=== PATIENT | male | born 1970 ===

== ENCOUNTER 2016-11-13 09:47 | Observation (INO) | payer BC ==
--- NOTE | 2016-11-13 10:16 | ED PDOC ---
Arrival/HPI - General Historian: Patient - History of Present Illness Time/Duration: Other (2 days) Context: Home - General Chief Complaint: Rib Injury Time Seen by Provider: 11/13/16 10:15 - History of Present Illness Narrative History of Present Illness (Text): 11/13/16 10:22 This 46 yo male present s to this ED c/o left pleuritic CP x 2 days. Denies fever, sob, rash, abdominal pain, recent illness, trauma, or recent travel. PERC negative for PE (Felix Dugan P) Past Medical History - Provider Review Nursing Documentation Reviewed: Yes - Infectious Disease Hx of Infectious Diseases: None - Psychiatric Hx Substance Use: No - Surgical History Other/Comment: right shouder repair 2016 - Anesthesia Hx Anesthesia: Yes Hx Anesthesia Reactions: No Hx Malignant Hyperthermia: No Family/Social History - Physician Review Nursing Documentation Reviewed: Yes Family/Social History: No Known Family HX Smoking Status: Never Smoked Hx Alcohol Use: No Hx Substance Use: No Allergies/Home Meds Allergies/Adverse Reactions: Allergies No Known Allergies Allergy (Verified 11/13/16 10:06) Review of Systems - Review of Systems Constitutional: Normal. absent: Fatigue, Weight Change, Fevers Eyes: Normal ENT: Normal Respiratory: Normal. absent: SOB, Cough Cardiovascular: Chest Pain. absent: Palpitations, Edema, Calf Pain, CARLSON, Orthopnea, Syncope Gastrointestinal: Normal Genitourinary Male: Normal Musculoskeletal: Normal Skin: Normal Neurological: Normal Endocrine: Normal Hemo/Lymphatic: Normal Psychiatric: Normal Physical Exam Temperature: Afebrile Blood Pressure: Normal Pulse: Regular Respiratory Rate: Normal Appearance: Positive for: Well-Appearing, Non-Toxic, Comfortable Pain Distress: None Mental Status: Positive for: Alert and Oriented X 3 - Systems Exam Head: Present: Atraumatic, Normocephalic Pupils: Present: PERRL Extroacular Muscles: Present: EOMI Conjunctiva: Present: Normal Mouth: Present: Moist Mucous Membranes Neck: Present: Normal Range of Motion Respiratory/Chest: Present: Clear to Auscultation, Good Air Exchange, Tender to Palpation ((+) mild tenderness left lateral rib area. no chest flail. No swelling or ecchymosis). No: Respiratory Distress, Accessory Muscle Use Cardiovascular: Present: Regular Rate and Rhythm, Normal S1, S2. No: Murmurs Abdomen: Present: Normal Bowel Sounds. No: Tenderness, Distention, Peritoneal Signs Back: Present: Normal Inspection. No: CVA Tenderness Upper Extremity: Present: Normal Inspection, Normal ROM, NORMAL PULSES. No: Cyanosis, Edema Lower Extremity: Present: Normal Inspection, Normal ROM. No: Edema Neurological: Present: GCS=15, CN II-XII Intact, Speech Normal, Motor Func Grossly Intact, Normal Sensory Function, Normal Cerebellar Funct, Gait Normal, Memory Normal Skin: Present: Warm, Dry, Normal Color. No: Rashes Psychiatric: Present: Alert, Oriented x 3, Normal Insight, Normal Concentration Vital Signs Temp Pulse Resp BP Pulse Ox 11/13/16 14:39 98 F 75 19 124/75 99 11/13/16 12:19 67 18 118/64 96 11/13/16 11:02 65 18 120/65 96 11/13/16 10:01 98.3 F 75 19 132/82 100 Medical Decision Making Re-evaluation Time: 13:21 Reassessment Condition: Re-examined, Improving,but remains with symptoms - Lab Interpretations I have reviewed the lab results: Yes Interpretation: No clinic. lab abnormalty - EKG Interpretation Interpreted by ED Physician: Yes (NSR @ [address] changes) Type: 12 lead EKG Comparison: No previous EKG avail. ED Course and Treatment: 11/13/16 10:18 I was available for consultation during PA evaluation. The chart was reviewed by me, and I agree with disposition. The documented history was done by the physician advertising manager. The documented physical exam was done by the physician advertising manager. The documented procedures were done by the physician advertising manager. (Milind Pineda) 11/13/16 13:[address] Farris who is covering Dr. Esquivel, regarding chest pain. We reviewed EKG, Labs, and CXR. She agrees with plan for observation (Felix Dugan ) - Lab Interpretations Lab Results: 11/13/16 11:00 11/13/16 11:00 Lab Results 11/13/16 11:00: Sodium 141, Potassium 4.3, Chloride 102, Carbon Dioxide 29, Anion Gap 14, BUN 19, Creatinine 0.9, Est GFR ( Amer) > 60, Est GFR (Non- Af Amer) > 60, Random Glucose 101, Calcium 9.3, Total Bilirubin 0.5, AST 31, ALT 60 H, Alkaline Phosphatase 84, Lactate Dehydrogenase 444, Total Creatine Kinase 115, Troponin I < 0.01, Total Protein 7.7, Albumin 4.3, Globulin 3.4, Albumin/Globulin Ratio 1.3 11/13/16 11:00: WBC 6.3, RBC 5.55, Hgb 15.2, Hct 44.3, MCV 79.8 L, MCH 27.4, MCHC 34.3, RDW 13.5, Plt Count 179, MPV 11.8 H, Gran % 71.1 H, Lymph % (Auto) 21.3 L, Pratt % (Auto) 6.0, Eos % (Auto) 1.1 L, Baso % (Auto) 0.5, Gran # 4.48, Lymph # 1.3, Pratt # 0.4, Eos # 0.1, Baso # 0.03 - RAD Interpretation Narrative RAD Interpretations (Text): 11/13/16 13:21 CXR: NAD (Felix Dugan) Radiology Orders: 11/13/16 10:21 CHEST TWO VIEWS (PA/LAT) [RAD] Stat RIBS LEFT [RAD] Stat - Medication Orders Current Medication Orders: Discontinued Medications Aspirin (Aspirin Chewable) 324 mg PO STAT STA Stop: 11/13/16 13:01 Last Admin: 11/13/16 14:11 Dose: 324 mg Aspirin (Aspirin) 325 mg PO DAILY [facility] Last Admin: 11/14/16 09:53 Dose: 325 mg Famotidine (Pepcid) 20 mg PO 1000,2200 [facility] Last Admin: 11/14/16 09:55 Dose: Not Given Non-Admin Reason: Patient Refused Ketorolac Tromethamine (Toradol) 30 mg IM STAT STA Stop: 11/13/16 10:24 Last Admin: 11/13/16 10:29 Dose: 30 mg - Scribe Statement The provider has reviewed the documentation as recorded by the Scribe - Scribe Statement Gail Hussein Provider Scribe Attestation: All medical record entries made by the Scribe were at my direction and personally dictated by me. I have reviewed the chart and agree that the record accurately reflects my personal performance of the history, physical exam, medical decision making, and the department course for this patient. I have also personally directed, reviewed, and agree with the discharge instructions and disposition. (Felix Dugan) Disposition/Present on Arrival - Present on Arrival Any Indicators Present on Arrival: No History of DVT/PE: No History of Uncontrolled Diabetes: No Urinary Catheter: No History of Decub. Ulcer: No History Surgical Site Infection Following: None - Disposition Have Diagnosis and Disposition been Completed?: Yes Disposition Time: 13:21 Patient Plan: Admission - Disposition Diagnosis: Chest pain Disposition: HOSPITALIZED Condition: STABLE
[2016-11-13 11:19] LABS: BASO # 0.03 K/mm3 (0.0-2.0); BASO % 0.5 % (0.0-3.0); EOS # 0.1 (0.0-0.7); EOS % 1.1 % (1.5-5.0); GRAN # 4.48 (1.4-6.5); GRAN % 71.1 % (50.0-68.0); HEMOGLOBIN 15.2 gm/dL (14.0-18.0); LYMPH # 1.3 (1.2-3.4); LYMPH % 21.3 % (22.0-35.0); MEAN CELL VOLUME 79.8 fL (80.0-105.0); MEAN CORPUSCULAR HEMOGLOBIN 27.4 pg (25.0-35.0); MEAN CORPUSCULAR HGB CONC 34.3 g/dl (31.0-37.0); MEAN PLATELET VOLUME 11.8 fl (7.0-11.0); MONO # 0.4 (0.1-0.6); PLATELET COUNT 179 10^3/uL (120.0-450.0); RBC 5.55 10^6/uL (3.5-6.1); RED CELL DISTRIBUTION WIDTH 13.5 % (11.5-14.5); WHITE BLOOD COUNT 6.3 10^3/ul (4.5-11.0)
[2016-11-13 11:25] LABS: ALB/GLOB RATIO 1.3 (1.1-1.8); ALBUMIN 4.3 g/dL (3.0-4.8); ALT/SGPT 60 U/L (7-56); AST/SGOT 31 U/L (15-59); BLOOD UREA NITROGEN 19 mg/dL (7-21); CALCIUM 9.3 mg/dL (8.4-10.5); GFR AFRICAN-AMERICAN > 60; GFR NON-AFRICAN AMERICAN > 60
[2016-11-13 11:51] LABS: TROPONIN I < 0.01 ng/mL
--- NOTE | 2016-11-13 12:13 | RAD ---
PROCEDURE: Left ribs four views HISTORY: pain COMPARISON: TECHNIQUE: Four views FINDINGS: There is no evidence of displaced fracture or pneumothorax. IMPRESSION: Negative study
--- NOTE | 2016-11-13 12:14 | RAD ---
HISTORY: pleuritic CP COMPARISON: No prior. TECHNIQUE: Chest PA and lateral FINDINGS: LUNGS: No active pulmonary disease. PLEURA: No significant pleural effusion identified. No pneumothorax apparent. CARDIOVASCULAR: Normal. OSSEOUS STRUCTURES: No significant abnormalities. VISUALIZED UPPER ABDOMEN: Normal. OTHER FINDINGS: None. IMPRESSION: No active disease.
[2016-11-13 14:40] VITALS: TEMP 98; O2SAT 99
[2016-11-13 16:51] VITALS: BP 134/82; PULSE 59; RESP 20
[2016-11-13 20:01] LABS: TROPONIN I < 0.01 ng/mL
--- NOTE | 2016-11-13 21:12 | CP.PCM.HP ---
History of Present Illness - History of Present Illness History of Present Illness: Mr. Zimmerman is ayoung 46 year old male with left sided chest pain. No radiation to arm. Not increased with deep breaths. CXR is unremarkable. Cardiac enzymes not elevated. CBC showed microcytosis. HB is normal 15 gm/dl. He thinks it might be related to anxiety as he is getting in 2 weeks. No similar episodes in past. Present on Admission - Present on Admission Any Indicators Present on Admission: No Review of Systems - Review of Systems All systems: reviewed and no additional remarkable complaints except - Constitutional Constitutional: As Per HPI - EENT Eyes: absent: As Per HPI, Blind Spots, Blurred Vision, Change in Vision, Decreased Night Vision, Diplopia, Discharge, Dry Eye, Exophthalmos, Floaters, Irritation, Itchy Eyes, Loss of Peripheral Vision, Pain, Photophobia, Requires Corrective Lenses, Sees Flashes, Spots in Vision, Tunnel Vision, Other Visual Disturbances, Loss of Vision, Other Ears: absent: As Per HPI, Decreased Hearing, Ear Discharge, Ear Pain, Tinnitus, Abnormal Hearing, Disequilibrium, Dizziness, Other Nose/Mouth/Throat: absent: As Per HPI, Epistaxis, Nasal Congestion, Nasal Discharge, Nasal Obstruction, Nasal Trauma, Nose Pain, Post Nasal Drip, Sinus Pain, Sinus Pressure, Bleeding Gums, Change in Voice, Dental Pain, Dry Mouth, Dysphagia, Halitosis, Hoarsness, Lip Swelling, Mouth Lesions, Mouth Pain, Odynophagia, Sore Throat, Throat Swelling, Tongue Swelling, Facial Pain, Neck Pain, Neck Mass, Other - Cardiovascular Cardiovascular: As Per HPI - Respiratory Respiratory: absent: As Per HPI, Cough, Dyspnea, Hemoptysis, Dyspnea on Exertion , Wheezing, Snoring, Stridor, Pain on Inspiration, Chest Congestion, Excessive Mucous Production, Change in Mucous Color, Pain with Coughing, Other - Gastrointestinal Gastrointestinal: absent: As Per HPI, Abdominal Pain, Belching, Bloating, Change in Bowel Habits, Change in Stool Character, Coffee Ground Emesis, Constipation, Cramping, Diarrhea, Dyspepsia, Dysphagia, Early Satiety, Excessive Flatus, Fecal Incontinence, Heartburn, Hematemesis, Hematochezia, Loose Stools, Melena, Nausea, Odynophagia, Temesmus, Vomiting, Other - Genitourinary Genitourinary: absent: As Per HPI, Change in Urinary Stream, Difficulty Urinating, Dysuria, Flank Pain, Hematuria, Pyuria, Nocturia, Urinary Incontinence, Urinary Frequency, Urinary Hesitance, Urinary Urgency, Voiding Freq/Small Amts, Freq UTI, Hx Renal/Bladder Calculi, Hx /Renal Surgery, Bladder Distension, Other - Musculoskeletal Musculoskeletal: absent: As Per HPI, Abnormal Gait, Arthralgias, Atrophy, Back Pain, Deformity, Joint Swelling, Limited Range of Motion, Loss of Height, Muscle Cramps, Muscle Weakness, Myalgias, Neck Pain, Numbness, Radiating Pain into Limb, Stiffness, Tingling, Other - Integumentary Integumentary: absent: As Per HPI, Acne, Alopecia, Bleeding Lesions, Change in Hair, Change in Nails, Change in Pigmentation, Changing Lesions, Dry Skin, Erythema, Furuncle, Hirsutism, Lesions, New Lesions, Non-Healing Lesions, Photosensitivity, Pruritus, Rash, Skin Pain, Skin Ulcer, Sores, Striae, Swelling , Unusual Bruising, Wounds, Jaundice, Other - Neurological Neurological: absent: As Per HPI, Abnormal Gait, Abnormal Hearing, Abnormal Movements, Abnormal Speech, Behavioral Changes, Burning Sensations, Confusion, Convulsions, Disequilibrium, Dizziness, Numbness, Focal Weakness, Frequent Falls , Headaches, Lack of Coordination, Loss of Vision, Memory Loss, Paresthesias, Radicular Pain, Restless Legs, Sensory Deficit, Syncope, Tingling, Tremor, Vertigo, Weakness, Other Visual Disturbances, Other - Psychiatric Psychiatric: As Per HPI - Endocrine Endocrine: absent: As Per HPI, Change in Body Appearance, Change in Libido, Cold Intolorance, Deepening of Voice, Excessive Sweating, Fatigue, Flushing, Heat Intolorance, Increase in Ring/Shoe/Hat Size, Palpitations, Polydipsia, Polyphagia, Polyuria, Other - Hematologic/Lymphatic Hematologic: As Per HPI Past Patient History - Infectious Disease Hx of Infectious Diseases: None - Past Social History Smoking Status: Never Smoked - MUSCULOSKELETAL/RHEUMATOLOGICAL Hx Falls: No Other/Comment: Rt shoulder repair 2016 - PSYCHIATRIC Hx Substance Use: No - SURGICAL HISTORY Hx Surgeries: Yes Other/Comment: right shouder repair 2016 - ANESTHESIA Hx Anesthesia: Yes Hx Anesthesia Reactions: No Hx Malignant Hyperthermia: No Meds Allergies/Adverse Reactions: Allergies Allergy/AdvReac Type Severity Reaction Status Date / Time No Known Allergies Allergy Verified 11/13/16 10:06 Physical Exam - Constitutional Appears: Well, Non-toxic - Head Exam Head Exam: ATRAUMATIC, NORMAL INSPECTION, NORMOCEPHALIC - Eye Exam Eye Exam: Normal appearance Pupil Exam: NORMAL ACCOMODATION - ENT Exam ENT Exam: Mucous Membranes Moist, Normal Exam - Neck Exam Neck exam: Positive for: Normal Inspection - Respiratory Exam Respiratory Exam: Clear to Auscultation Bilateral, NORMAL BREATHING PATTERN - Cardiovascular Exam Cardiovascular Exam: REGULAR RHYTHM, +S1 - GI/Abdominal Exam GI & Abdominal Exam: Normal Bowel Sounds - Extremities Exam Extremities exam: Positive for: normal inspection - Back Exam Back exam: NORMAL INSPECTION - Psychiatric Exam Psychiatric exam: Normal Affect - Skin Skin Exam: Normal Color, Warm Results - Vital Signs Recent Vital Signs: Last Vital Signs Temp 98 F 11/13/16 16:04 Pulse 59 L 11/13/16 16:04 Resp 20 11/13/16 16:04 BP 134/82 11/13/16 16:04 Pulse Ox 99 11/13/16 14:39 - Labs Result Diagrams: 11/13/16 11:00 11/13/16 11:00 Labs: Laboratory Results - last 24 hr 11/13/16 19:00 Lactate Dehydrogenase 388 Total Creatine Kinase 104 Troponin I < 0.01 Assessment & Plan - Assessment and Plan (Free Text) Assessment: 1. Left sided chest pain. Likely non cardiac. Cardiac enzymes normal. EKG no acute changes. Monitor serial cardiac enzymes. Tele monitoring. Cardiology consult with Dr. Souza requested. 2. Microcytosis : Hb/hct normal. unlikely has thalasemia trait. 3. Lipid profile, TSH with am labs. 4. Anxiety : xanax prn.
[2016-11-14 03:04] LABS: TROPONIN I < 0.01 ng/mL
--- NOTE | 2016-11-14 09:54 | CARD ---
APPROVED REPORT EKG Measurement Heart [id number] HI [id number] <Conclusion> Normal sinus rhythm PRWP Biphasic T waves V 4 - 6, R/O ischemia
--- NOTE | 2016-11-14 18:51 | CON ---
DATE: 11/14/2016 CARDIOLOGY CONSULTATION REASON FOR THE CONSULTATION: Chest pain. 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 Chest pain is more, increases when coughing, sneezing and laughing or takes a deep breath or on a bending at certain position. Denies any chest pain or dyspnea on exertion. Prior to that this happened 3 days before and denies any chest pain on climbing stairs or dyspnea on exertion. PAST MEDICAL HISTORY: Nothing significant. SOCIAL HISTORY: Denies any . Denies any history of smoking. Denies any history of alcohol abuse. FAMILY HISTORY: Noncontributory. CURRENT MEDICATIONS: The patient takes off and on aspirin 81 mg daily. REVIEW OF SYSTEMS: As per HPI and negative except for HPI. PHYSICAL EXAMINATION: VITAL SIGNS: Height of the patient is 5 feet 11 inch, weight of the patient is 261 pounds, body mass index 36.4 kg/m2. Temperature afebrile, heart rate 75 and blood pressure 124/75. HEENT: PERRLA. Extraocular muscles intact. NECK: Supple. No carotid bruit. No thyromegaly. CHEST: Clear to auscultation. HEART: S1 and S2, regular. ABDOMEN: Soft. EXTREMITIES: Clubbing and cyanosis negative. EKG shows normal sinus rhythm, acute ST-T changes noted. LABORATORY DATA: Blood workup as follows: WBC 6.3, hemoglobin 15.2, hematocrit 44.3, platelet count 179. Chemistry shows sodium 141, potassium 4.3, chloride 102, carbon dioxide 29, anion gap of 14, BUN 19, creatinine 0.9. Troponin is 0.01 negative. IMPRESSION: Atypical chest pain mostly likely musculoskeletal secondary to twisting of the body. So far, no evidence of acute coronary syndrome or non-ST segment elevation myocardial infarction. RECOMMENDATION: Continue lipid profile, TSH, hemoglobin A1c. We will also suggest the patient echo and a stress test as outpatient. Echo was offered today but patient is refusing. The patient preferred to do as outpatient. Face sheet was given to the cardiology department to scheduled a stress test as outpatient, we will discontinue telemetry. Thank you Dr. Farris for providing me the opportunity in taking care of the patient. Pete Souza MD [facility] # [id number]
== END 2016-11-14 14:50 | disposition home or self-care (01) ==
LOC: ED 09:47 → ERH 13:29 → 3RNO 14:58
PROVIDERS: ADMIT Internal Medicine Medical Oncology; ATTEND Internal Medicine Medical Oncology
DX: R07.89 Other chest pain (principal); F41.9 Anxiety disorder, unspecified; R40.2412 Glasgow coma scale score 13-15, at arrival to emergency department
CPT/HCPCS: 36415; 71020; 71100; 80053; 82550; 83615; 84484; 85025; 93005; 96372; 99284; G0378; J1885